=== PATIENT | male | born 1950 | race African-American/Black ===

== ENCOUNTER → 2017-01-29 | Outpatient (CLI) | payer OTHER ==
[~2017-01-29] MED LIST: ASPIRIN81 M2 PO; ATORVASTATIN CA40 MG PO; BACTROBAN CREAM30 GM TOP; BACTROBAN NASAL1 GM NS; CARVEDILOL12.5 MG PO; COUMADIN 5 MG TA5 M1 PO; COZAAR100 MG PO; CRESTOR10 MG PO; FENTANYL PATCH75 MCG TRANSDERM; FERREX-150 PLU150 MG PO; FLONASE 0.05%50 MCG NASAL; HYDROCODON-ACE1 EAC7 PO; LOPRESSOR25 PO; LORTAB 10-3251 EACH PO; LOW DOSE ASPIRI81 M1 PO; MAG DELAY64 MG PO; METOPROLOL SUCC50 MG PO; NORCO 5-325 TA1 EACH PO; NORVASC10 MG PO; OMEPRAZOLE40 MG PO; OXYCONTIN CR 2020 MG PO; PERCOCET 5-3251 EACH PO; PLAVIX 75 MG TA75 MG PO; PROAIR RESPICL90 MCG IH; ROXICODONE15 MG PO; SENNA S TABLET1 EACH PO; SENOKOT-S1 TA2 PO; TOBRAMYCIN SULFA5 ML OP; TOPROL XL100 MG PO; UNICOMPLEX M TA1 TA1 PO
== END ==
LOC: RAD 16:20
DX: M16.11 Unilateral primary osteoarthritis, right hip (principal); M19.021 Primary osteoarthritis, right elbow

== ENCOUNTER → 2017-05-31 | Outpatient (CLI) | payer OTHER | LOC: MRI 08:29 | DX: M47.896 Other spondylosis, lumbar region (principal); M16.11 Unilateral primary osteoarthritis, right hip ==

== ENCOUNTER 2018-01-08 14:43 | Emergency (ER) | payer OTHER | END 2018-01-08 14:51 | disposition left against medical advice (07) | LOC: ER 14:43 | DX: Z53.21 Procedure and treatment not carried out due to patient leaving prior to being seen by health care provider (principal) ==

== ENCOUNTER 2018-12-01 15:48 | Emergency (ER) | payer OTHER ==
[~2018-12-01] VITALS: Ht 172.7 cm; Wt 86.2 kg
[2018-12-01 16:55] LABS: HEMATOCRIT 33.2 % (42.0-52.0); HEMOGLOBIN 10.9 gm/dL (14.0-18.0); MCH 30.3 pg (26.0-34.0); MCHC 32.9 g/dL (28.0-37.0); MCV 92.2 fL (80.0-100.0); RBC 3.6 mil/uL (4.50-6.00); RDW 16.3 % (10.5-14.5); WBC 12.5 thou/uL (4.0-11.0)
[2018-12-01 16:59] LABS: CALCIUM 8.3 mg/dL (8.5-10.1); POTASSIUM 4.4 mmol/L (3.5-5.1)
[2018-12-01] MEDS ORDERED: VENTOLIN HFA 1818 GM INH (18:44)
[2018-12-01] MEDS ORDERED: DOXYCYCLINE 10100 MG PO (18:44)
[2018-12-01 19:23] VITALS: BP 148/72
--- NOTE | 2018-12-02 08:31 | EKG ---
[address] [address] ELECTROCARDIOGRAM REPORT Name: SHAERAMSEY Room #: DEP Lambert#: [id number] ������������������ Admission: 12/01/18 ������������������ Attend Phys: Discharge: 12/01/18 ������������������ Date of : 48 Report #: [id number] ����������������������������������������������������������������� [id number] THIS REPORT FOR: //name// [facility] ED Test Date: 2018-12-01 Test Time: 18:25:29 Pat Name: RAMSEY KAUFMAN Department: Room: Gender: M Copper Tapper: GIANFRANCO : 1950 Requested By: Nisha Ramos Order Number: [id number] MD: Norman Rivera Measurements Intervals [place] Rate: 88 P: 47 [place]: 134 QRS: 2 QRSD: 96 T: 176 QT: 383 QTc: 464 Interpretive Statements Sinus rhythm Borderline repolarization abnormality Compared to ECG 08/16/2011 07:36:50 Sinus tachycardia no longer present T-wave abnormality no longer present Possible ischemia no longer present Electronically Signed On 12-02-2018 8:31:03 CDT by Norman Rivera [email or web address] ��������������������������������������������� <ELECTRONICALLY SIGNED> ���������������������������������������� By: Norman Rivera MD ��������������������������������������������� 12/02/18 0831 1825 182 Norman Rivera MD /[facility]
== END 2018-12-01 19:23 | disposition home or self-care (01) ==
LOC: ER 15:48
PROVIDERS: Physician Assistant
DX: J18.9 Pneumonia, unspecified organism (principal); I25.10 Atherosclerotic heart disease of native coronary artery without angina pectoris; I10 Essential (primary) hypertension; E78.5 Hyperlipidemia, unspecified; G89.29 Other chronic pain; Z87.891 Personal history of nicotine dependence; Z79.899 Other long term (current) drug therapy; Z87.11 Personal history of peptic ulcer disease

== ENCOUNTER 2018-12-14 13:22 | Emergency (ER) | payer OTHER ==
[~2018-12-14] VITALS: Ht 175.3 cm; Wt 68.0 kg
[~2018-12-14 13:22] MED LIST changes: +DOXYCYCLINE 10100 MG PO; +VENTOLIN HFA 1818 GM INH
[2018-12-14] MEDS ORDERED: NORCO 5-325 TA1 EACH PO (14:27)
[2018-12-14] MEDS ORDERED: LIDOCAINE PAIN1 EACH TOP (14:27)
[2018-12-14 15:04] VITALS: BP 137/82
== END 2018-12-14 15:13 | disposition home or self-care (01) ==
LOC: ER 13:22
DX: M25.561 Pain in right knee (principal); M25.562 Pain in left knee; M46.90 Unspecified inflammatory spondylopathy, site unspecified; G89.29 Other chronic pain; I25.10 Atherosclerotic heart disease of native coronary artery without angina pectoris; I10 Essential (primary) hypertension; Z87.11 Personal history of peptic ulcer disease; Z87.891 Personal history of nicotine dependence

== ENCOUNTER 2019-01-12 17:21 | Emergency (ER) | payer OTHER ==
[~2019-01-12] VITALS: Ht 172.7 cm; Wt 72.6 kg
[~2019-01-12 17:21] MED LIST changes: +LIDOCAINE PAIN1 EACH TOP
[2019-01-12 18:01] LABS: ABSOLUTE NEUTROPHILS 6.8 thou/uL (1.4-8.2); EOSINOPHILS 0.8 % (0.0-3.0); HEMATOCRIT 31.7 % (42.0-52.0); HEMOGLOBIN 10.2 gm/dL (14.0-18.0); LYMPHOCYTES 18.7 % (24.0-44.0); MCH 28.9 pg (26.0-34.0); MCHC 32.1 g/dL (28.0-37.0); MCV 90.2 fL (80.0-100.0); MONOCYTES 10.9 % (1.0-8.0); PLATELET COUNT 250 thou/uL (150-400); POLYS 68.6 % (36.0-66.0); RBC 3.52 mil/uL (4.50-6.00); RDW 17.9 % (10.5-14.5); WBC 9.9 thou/uL (4.0-11.0)
--- NOTE | 2019-01-12 18:08 | EKG ---
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 : 1950 Requested By: Katie Tapia Order Number: [id number] MD: Norman Rivera Measurements Intervals [place] Rate: 80 P: 51 DE: 136 QRS: -12 QRSD: 98 T: 204 QT: 413 QTc: 477 Interpretive Statements Sinus rhythm Atrial premature complex Probable left atrial enlargement Repol abnrm suggests ischemia, anterolateral Compared to ECG 12/01/2018 18:25:29 Atrial premature complex(es) now present Possible ischemia now present Electronically Signed On 01-12-2019 18:08:45 CDT by Norman Rivera [email or web address] ��������������������������������������������� <ELECTRONICALLY SIGNED> ���������������������������������������� By: Norman Rivera MD ��������������������������������������������� 01/12/19 1808 1728 1728 Norman Rivera MD /EPI
[2019-01-12 18:10] LABS: ANION GAP 11 mmol/L (7-16); BUN 9 mg/dL (7-18); CALCIUM 7.1 mg/dL (8.5-10.1); CHLORIDE 114 mmol/L (98-107); CO2 21 mmol/L (21-32); GLUCOSE 59 mg/dL (74-106); POTASSIUM 4.5 mmol/L (3.5-5.1); SODIUM 146 mmol/L (136-145)
[2019-01-12 18:19] LABS: TROPONIN-I <0.06 ng/mL (<0.06)
[2019-01-12 19:40] VITALS: BP 125/65
== END 2019-01-12 19:41 | disposition home or self-care (01) ==
LOC: ER 17:21
PROVIDERS: Student in an Organized Health Care Education/Training Program
DX: F10.129 Alcohol abuse with intoxication, unspecified (principal); Y90.6 Blood alcohol level of 120-199 mg/100 ml; R41.82 Altered mental status, unspecified; I25.10 Atherosclerotic heart disease of native coronary artery without angina pectoris; E78.5 Hyperlipidemia, unspecified; I10 Essential (primary) hypertension; G89.29 Other chronic pain; M54.9 Dorsalgia, unspecified; Z87.891 Personal history of nicotine dependence

== ENCOUNTER 2019-02-19 13:34 | Emergency (ER) | payer OTHER ==
[~2019-02-19] VITALS: Ht 172.7 cm; Wt 76.7 kg
[2019-02-19] MEDS ORDERED: NORCO 5-325 TA1 EAC1 PO (14:52)
[2019-02-19] MEDS ORDERED: LIDOCARE1 EACH TOP (14:52)
[2019-02-19 15:00] VITALS: BP 155/74
== END 2019-02-19 15:00 | disposition home or self-care (01) ==
LOC: ER 13:34
DX: M25.561 Pain in right knee (principal); M25.562 Pain in left knee; I25.10 Atherosclerotic heart disease of native coronary artery without angina pectoris; I10 Essential (primary) hypertension; E78.5 Hyperlipidemia, unspecified; M54.9 Dorsalgia, unspecified; G89.29 Other chronic pain; Z87.891 Personal history of nicotine dependence

== ENCOUNTER 2019-04-04 03:33 | Emergency (ER) | payer OTHER ==
[~2019-04-04] VITALS: Ht 172.7 cm; Wt 81.7 kg
[~2019-04-04 03:33] MED LIST changes: +LIDOCARE1 EACH TOP; +NORCO 5-325 TA1 EAC1 PO
[2019-04-04 04:16] LABS: ABSOLUTE NEUTROPHILS 8.1 thou/uL (1.4-8.2); BASOPHILS 0.5 % (0.0-2.0); EOSINOPHILS 1.3 % (0.0-3.0); HEMATOCRIT 40.7 % (42.0-52.0); HEMOGLOBIN 13.5 gm/dL (14.0-18.0); LYMPHOCYTES 17.1 % (24.0-44.0); MCH 32.7 pg (26.0-34.0); MCHC 33.2 g/dL (28.0-37.0); MCV 98.3 fL (80.0-100.0); MONOCYTES 9.5 % (1.0-8.0); PLATELET COUNT 310 thou/uL (150-400); POLYS 71.6 % (36.0-66.0); RBC 4.13 mil/uL (4.50-6.00); RDW 16.9 % (10.5-14.5); WBC 11.3 thou/uL (4.0-11.0)
[2019-04-04 04:25] LABS: CALCIUM 8.5 mg/dL (8.5-10.1); CREATININE 0.9 mg/dL (0.7-1.3); POTASSIUM 3.8 mmol/L (3.5-5.1)
[2019-04-04] MEDS ORDERED: PROTONIX40 M1 PO (04:28)
[2019-04-04] MEDS ORDERED: ONDANSETRON HCL4 M2 PO (04:28)
[2019-04-04] MEDS ORDERED: BENTYL 20 MG TA20 M1 PO (04:28)
[2019-04-04 04:31] LABS: ALBUMIN 2.8 g/dL (3.4-5.0)
[2019-04-04 06:22] VITALS: BP 142/80
--- NOTE | 2019-04-05 15:20 | EKG ---
[address] [address] [facility] [place] [address] ELECTROCARDIOGRAM REPORT Name: RAMSEY KAUFMAN [id number] ������������������ Admission: 04/04/19 ������������������ Attend Phys: Discharge: 04/04/19 ������������������ Date of : 48 Report #: [id number] ����������������������������������������������������������������� [id number] THIS REPORT FOR: //name// [facility] ED Test Date: 2019-04-04 Test Time: 03:48:58 Pat Name: RAMESY KAUFMAN Department: Room: Gender: M Palliative Nurse: : 1950 Requested By: Tomasz Cervantes Order Number: [id number] MD: Julio C Foy Measurements Intervals [place] Rate: 119 P: 56 [place]: 125 QRS: -5 QRSD: 92 T: 179 QT: 326 QTc: 459 Interpretive Statements Sinus tachycardia Nonspecific ST and T wave abnormality Compared to ECG 01/12/2019 17:28:18 ST and T wave abnormality is less pronounced Atrial premature complex(es) no longer present Electronically Signed On 04-05-2019 15:20:20 CDT by Julio C Foy [email or web address] ��������������������������������������������� <ELECTRONICALLY SIGNED> ���������������������������������������� By: Julio C Foy MD, [facility] ��������������������������������������������� 04/05/19 1520 0348 0348 Julio C Foy MD, [facility] /EPI
== END 2019-04-04 06:23 | disposition home or self-care (01) ==
LOC: ER 03:33
PROVIDERS: Emergency Medicine
DX: R10.13 Epigastric pain (principal); R11.2 Nausea with vomiting, unspecified; G89.29 Other chronic pain; M25.561 Pain in right knee; M25.562 Pain in left knee; M51.36 Other intervertebral disc degeneration, lumbar region; I10 Essential (primary) hypertension; I25.10 Atherosclerotic heart disease of native coronary artery without angina pectoris; E78.5 Hyperlipidemia, unspecified; Z98.890 Other specified postprocedural states; Z87.891 Personal history of nicotine dependence